=== PATIENT | female | born 1965 | race American Indian/Alaskan Native ===

== ENCOUNTER 2017-02-04 15:58 | Emergency (ER) | payer SELFPAY ==
[2017-02-04] MEDS ORDERED: TORADOL IV ONE (20:43)
--- NOTE | 2017-02-04 21:26 | Emergency Department Report ---
ED Neuro Deficit HPI - General Chief Complaint: Pain General Stated Complaint: RT ARM/EYE PAIN/ANXIETY Time Seen by Provider: 02/04/17 20:28 Source: patient Mode of arrival: Ambulatory Limitations: No Limitations - History of Present Illness Initial Comments: 51 yo female with a past medical history Dean's palsy, hypertension, and PTSD presents to the hospital complains of blurred vision to right eye in continued right wrist pain. Patient initially told triage she had a CVA however, upon further questioning patient was diagnosed with Dean's palsy and had the right eyelid and right lower face and falls without any extremity involvement in July 2016. She states that other people mentioned she had a stroke. I explained to patient at difference between Dean's palsy and a stroke. Patient reports for 1 week she feels like her right eye vision has been more blurred. She admits to not having a full recovery from the Dean's palsy and still has residual right-sided facial weakness. She is able to fully close her eyelid at this time but has residual right lower facial droop. Patient also feels like she has tenderness to palpation around her eye and right side of her face. No complaints of fever, eye discharge, focal weakness. Patient also has ongoing right wrist pain. She was seen by ER physician 3 weeks ago and diagnosed with tendinitis. 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 Pain is intermittent, worse with palpation and movement. Rated 9/10 in intensity. - Related Data Home Medications: Previous Rx's Medication Instructions Recorded Last Taken Type Naproxen [Naprosyn TAB] 500 mg PO BID PRN #20 tablet 02/04/17 Unknown Rx Allergies/Adverse Reactions: Allergies Allergy/AdvReac Type Severity Reaction Status Date / Time codeine AdvReac Dizziness Verified 02/04/17 16:54 hydromorphone HCl AdvReac Shortness Verified 02/04/17 16:54 [From Dilaudid] of Breath ED Review of Systems ROS: Stated complaint: RT ARM/EYE PAIN/ANXIETY Other details as noted in HPI Comment: All other systems reviewed and negative Other: Constitutional: No fevers chills Eyes: as per hpi ENT: No ear pain or throat pain Neck: Denies pain Respiratory: Denies cough wheezing shortness of breath Cardiovascular: Denies chest pain, palpitations, syncope GI: Denies abdominal pain, nausea, vomiting, diarrhea : Denies dysuria, urinary frequency, or urgency Musculoskeletal: Denies back pain, Skin: Denies rash, lesions, erythema Neurologic: Denies headache, numbness, weakness Psychiatric: Denies suicidal ideation, hallucinations ED Past Medical Hx - Past Medical History Previous Medical History?: Yes Hx Hypertension: Yes Hx Psychiatric Treatment: Yes (PTSD) Additional medical history: [place] palsy - Surgical History Past Surgical History?: Yes Additional Surgical History: Tonsillectomy, adenoidectomy, gall bladder, tubel ligation - Social History Smoking Status: Heavy Tobacco Smoker Substance Use Type: Alcohol, Non Opiate Pain - Medications Home Medications: Home Medications Medication Instructions Recorded Confirmed Last Taken Type Naproxen [Naprosyn TAB] 500 mg PO BID PRN #20 tablet 02/04/17 Unknown Rx ED Neuro Physical Exam - General Limitations: No Limitations Suspected Stroke: No - NIHSS Assessment Interval: Baseline 1a. Level of Consciousness: responds reflex/autonomic 1b. LOC Questions: answers correctly 1c. LOC Commands: performs tasks correctly 2. Best Gaze: normal 3. Visual: no visual loss 4. Facial Palsy: minor paralysis 5b. Motor Arm Right: no drift 5a. Motor Arm Left: no drift 6a. Motor Leg Left: no drift 6b. Motor Leg Right: no drift 7. Limb Ataxia: absent 8. Sensory: normal 9. Best Language: no aphasia 10. Dysarthria: normal 11. Extinction/Inattention: no abnormality Total Score: 4 Stroke Severity: Minor Stroke - Other Other exam information: General: No limitations, patient is alert in no acute distress Head exam: Atraumatic, normocephalic Eyes exam: Normal appearance, pupils equal reactive to light, extraocular movements intact. Very minimal tenderness around the periorbital area without erythema or warmth. Visual acuity 20/70 right eye, 20/50 left eye. She wears glasses but does not have them here in the ED. ENT: Moist mucous membrane, normal oropharynx Neck exam: Normal inspection, full range of motion, no meningismus nontender Respiratory exam: Clear to auscultation bilateral, no wheezes, rales, crackles Cardiovascular: Normal rate and rhythm, normal heart sounds Abdomen: Soft, nondistended, and nontender, with normal bowel sounds, no rebound, or guarding Extremity: Full range of motion normal inspection no deformity, tenderness to movement of the right wrist and to palpation of tendons. Tenderness extends of radial side of arm Back: Normal Inspection, full range of motion, no tenderness Neurologic: Alert, oriented x3, right lower face mild paralysis with a smile otherwise in no significant function intact in 5/5 upper and lower extremity strength Psychiatric: normal affect, normal mood Skin: Warm, dry, intact ED Course Vital Signs 02/04/17 02/04/17 02/04/17 16:54 17:05 21:05 Temperature 98.6 F 98.7 F Pulse Rate 87 80 Respiratory 18 16 Rate Blood Pressure 137/87 Blood Pressure 120/72 [Right] O2 Sat by Pulse 99 100 100 Oximetry - Reevaluation(s) Reevaluation #1: 02/04/17 21:38 Patient given Toradol for pain - Medical Decision Making Patient has no signs or symptoms of stroke at this time. Patient residual right sided weakness secondary to Dean's palsy. No signs of inflammation or infection of the right sided face identified this time. Patient is mild decreased vision of the left in her right eye however, baseline unknown. She does not have her corrective lenses present in the ED. Right wrist pain is chronic and ongoing and I discussed optimizing her workspace to prevent further wrist tendinitis/carpal tunnel. Patient will be prescribed Nsaids. She'll be encouraged to see her primary care physician. Right Velcro wrist splint placed in the ED. - Differential Diagnosis cellulitis, Dean's palsy, decreased vision acuity tendinitis, carpal tunnel Critical Care Time: No Critical care attestation.: If time is entered above; I have spent that time in minutes in the direct care of this critically ill patient, excluding procedure time. ED Disposition Clinical Impression: H/O Dean's palsy, Blurred vision, Wrist tendonitis Disposition: DISCHARGED TO HOME OR SELFCARE Is pt being admited?: No Does the pt Need Aspirin: No Condition: Stable Instructions: Dean Palsy (ED), Carpal Tunnel Syndrome (ED), Blurred Vision (ED) Additional Instructions: Follow-up with the clinic provider or the primary care doctor for of further workup and evaluation of your symptoms. You were also provided referral for wet mixer referral eye examination Prescriptions: Naproxen [Naprosyn TAB] 500 mg PO BID PRN #20 tablet PRN Reason: Pain Referrals: [facility] [Provider Group] - 3-5 Days (Primary clinic) CHACHA SAMPSON MD [Staff Physician] - 3-5 Days (eye doctor) MARTIN SMITH MD [Staff Physician] - 3-5 Days (Primary care doctor) Forms: Work/School Release Form(ED) Time of Disposition: 21:44
[2017-02-04 22:39] VITALS: BP 120/72
== END 2017-02-04 22:35 | disposition home or self-care (01) ==
LOC: ED 15:58
DX: M77.9 Enthesopathy, unspecified (principal); H53.8 Other visual disturbances; G51.0 Bell's palsy; I10 Essential (primary) hypertension; F43.10 Post-traumatic stress disorder, unspecified; F17.200 Nicotine dependence, unspecified, uncomplicated; Z98.51 Tubal ligation status; Z88.8 Allergy status to other drugs, medicaments and biological substances
CPT/HCPCS: 29125; 96374; 99283; J1885

== ENCOUNTER 2019-11-10 04:40 | Emergency (ER) | payer SELFPAY ==
[2019-11-10] MEDS ORDERED: DIPHENOXYLATE/ATROPINE TAB PO ONE (06:01)
[2019-11-10] MEDS ORDERED: DICYCLOMINE 20 MG TAB PO ONE (06:01)
[2019-11-10] MEDS ORDERED: FAMOTIDINE 20 MG TAB PO ONE (06:01)
--- NOTE | 2019-11-10 06:08 | Emergency Department Report ---
ED General Adult HPI - General Chief complaint: Upper Respiratory Infection Stated complaint: FLU SXT, ABD PAIN Source: patient Mode of arrival: Ambulatory Limitations: No Limitations - History of Present Illness Initial comments: Patient is a 54-year-old -[place] female with a history of hypertension who presents to the ED with a complaint of acute onset persistent intermittent diarrhea with diffuse mild abdominal discomfort, nasal and sinus congestion with mild dry cough and body aches for the last 5 days. Patient states that other family members have had similar symptoms after eating similar food 5 days ago. Patient denies chest pain, shortness of breath, fever, chills, dizziness, headache, sore throat, nausea, vomiting, dysuria, urinary frequency and urgency or abdominal pain. MD Complaint: diarrhea, nasal and sinus congestion, dry cough -: Sudden, days(s) (5) Location: abdomen Radiation: non-radiation Severity scale (0 -10): 2 Quality: aching, dull Consistency: intermittent Improves with: none Worsens with: none Associated Symptoms: denies other symptoms, cough, loss of appetite, malaise. denies: confusion, chest pain, diaphoresis, fever/chills, headaches, nausea/vomiting, rash, seizure, shortness of breath, syncope, weakness, other Treatments Prior to Arrival: none - Related Data Previous Rx's Medication Instructions Recorded Last Taken Type Naproxen [Naprosyn TAB] 500 mg PO BID PRN #20 tablet 02/04/17 Unknown Rx Dicyclomine [Bentyl] 20 mg PO Q6H PRN #24 tablet 11/10/19 Unknown Rx Diphenoxylate/Atropine [Lomotil] 1 - 2 tab PO Q4H PRN #20 tablet 11/10/19 Unknown Rx Famotidine [Pepcid] 20 mg PO Q12H #60 tablet 11/10/19 Unknown Rx amLODIPine 10 mg PO DAILY #30 tab 11/10/19 Unknown Rx Allergies Allergy/AdvReac Type Severity Reaction Status Date / Time codeine AdvReac Dizziness Verified 02/04/17 16:54 hydromorphone HCl AdvReac Shortness Verified 02/04/17 16:54 [From Dilaudid] of Breath ED Review of Systems ROS: Stated complaint: FLU SXT, ABD PAIN Other details as noted in HPI Constitutional: denies: chills, fever Eyes: denies: eye pain, eye discharge, vision change ENT: congestion. denies: ear pain, throat pain Respiratory: denies: cough, shortness of breath, wheezing Cardiovascular: denies: chest pain, palpitations Endocrine: no symptoms reported Gastrointestinal: diarrhea. denies: abdominal pain, nausea, vomiting, hematochezia Genitourinary: denies: urgency, dysuria, discharge Musculoskeletal: denies: back pain, joint swelling, arthralgia Skin: denies: rash, lesions Neurological: denies: headache, weakness, paresthesias Psychiatric: denies: anxiety, depression Hematological/Lymphatic: denies: easy bleeding, easy bruising ED Past Medical Hx - Past Medical History Previous Medical History?: Yes Hx Hypertension: Yes Hx CVA: Yes Hx Psychiatric Treatment: Yes (PTSD) Additional medical history: [place] palsy - Surgical History Past Surgical History?: Yes Additional Surgical History: Tonsillectomy, adenoidectomy, gall bladder, tubel ligation. HYSTERECTOMY - Social History Smoking Status: Current Every Day Smoker Substance Use Type: None - Medications Home Medications: Home Medications Medication Instructions Recorded Confirmed Last Taken Type Naproxen [Naprosyn TAB] 500 mg PO BID PRN #20 tablet 02/04/17 Unknown Rx Dicyclomine [Bentyl] 20 mg PO Q6H PRN #24 tablet 11/10/19 Unknown Rx Diphenoxylate/Atropine [Lomotil] 1 - 2 tab PO Q4H PRN #20 tablet 11/10/19 Unknown Rx Famotidine [Pepcid] 20 mg PO Q12H #60 tablet 11/10/19 Unknown Rx amLODIPine 10 mg PO DAILY #30 tab 11/10/19 Unknown Rx ED Physical Exam - General Limitations: No Limitations General appearance: alert, in no apparent distress - Head Head exam: Present: atraumatic, normocephalic, normal inspection - Eye Eye exam: Present: normal appearance, PERRL, EOMI Pupils: Present: normal accommodation - ENT ENT exam: Present: normal exam, normal orophraynx, mucous membranes moist, TM's normal bilaterally, normal external ear exam - Neck Neck exam: Present: normal inspection. Absent: tenderness, meningismus, lymphadenopathy, thyromegaly - Respiratory Respiratory exam: Present: normal lung sounds bilaterally. Absent: respiratory distress, wheezes, rales, rhonchi, chest wall tenderness, accessory muscle use - Cardiovascular Cardiovascular Exam: Present: regular rate, normal rhythm, normal heart sounds. Absent: systolic murmur, diastolic murmur, rubs, gallop - GI/Abdominal GI/Abdominal exam: Present: soft, normal bowel sounds. Absent: tenderness, guarding, rebound, hyperactive bowel sounds, hypoactive bowel sounds, organomegaly - Extremities Exam Extremities exam: Present: normal inspection, full ROM, normal capillary refill - Back Exam Back exam: Present: normal inspection, full ROM. Absent: tenderness, CVA tenderness (R), CVA tenderness (L), muscle spasm, paraspinal tenderness - Neurological Exam Neurological exam: Present: alert, oriented X3, CN II-XII intact, normal gait, reflexes normal - Psychiatric Psychiatric exam: Present: normal affect, normal mood - Skin Skin exam: Present: warm, dry, intact, normal color. Absent: rash ED Course Vital Signs 11/10/19 05:12 Temperature 98.3 F Pulse Rate 85 Respiratory 18 Rate Blood Pressure 176/104 O2 Sat by Pulse 98 Oximetry ED Medical Decision Making - Medical Decision Making This is a 54-year-old female who presented to the ED with persistent nasal and sinus congestion, persistent diarrhea and mild diffuse abdominal discomfort for 5 days. In the ED, patient is alert and oriented 3 and is not in distress. Patient was treated for diarrhea in the ED and discharged home on medications. Patient's symptoms are likely viral gastroenteritis as other vomiting members have had similar symptoms. Patient was advised to drink plenty of fluids and follow-up with the primary care physician in 5-7 days for reevaluation or return to the ED immediately if symptoms get worse. - Differential Diagnosis viral gastroenteritis; Diarrhea; Viral syndrome; URI Critical care attestation.: If time is entered above; I have spent that time in minutes in the direct care of this critically ill patient, excluding procedure time. ED Disposition Clinical Impression: Viral gastroenteritis, Acute viral syndrome Diarrhea Qualifiers: Diarrhea type: unspecified type Qualified Code(s): R19.7 - Diarrhea, unspecified Disposition: - TO HOME OR SELFCARE Is pt being admited?: No Does the pt Need Aspirin: No Condition: Stable Instructions: Viral Syndrome (ED), Upper Respiratory Infection (ED), Acute Diarrhea (ED) Additional Instructions: Take medication with food, drink plenty of fluids and follow-up with your primary care physician in 7-10 days for reevaluation. Return to the ED immediately if symptoms get worse. Prescriptions: amLODIPine 10 mg PO DAILY #30 tab Dicyclomine [Bentyl] 20 mg PO Q6H PRN #24 tablet PRN Reason: Pain , Severe (7-10) Diphenoxylate/Atropine [Lomotil] 1 - 2 tab PO Q4H PRN #20 tablet PRN Reason: Diarrhea Famotidine [Pepcid] 20 mg PO Q12H #60 tablet Referrals: JUWAN ASHRAF MD [Staff Physician] - 7-10 days Time of Disposition: 06:09 Print Language: SINHAL[place]
[2019-11-10 06:59] VITALS: BP 167/97
== END 2019-11-10 06:47 | disposition home or self-care (01) ==
LOC: ED 04:40
DX: K21.9 Gastro-esophageal reflux disease without esophagitis (principal); B34.9 Viral infection, unspecified; I10 Essential (primary) hypertension; F17.200 Nicotine dependence, unspecified, uncomplicated; F43.10 Post-traumatic stress disorder, unspecified; G51.0 Bell's palsy; Z90.710 Acquired absence of both cervix and uterus; Z98.51 Tubal ligation status; Z90.89 Acquired absence of other organs; Z79.899 Other long term (current) drug therapy; Z88.1 Allergy status to other antibiotic agents; Z88.4 Allergy status to anesthetic agent
CPT/HCPCS: 99282